=== PATIENT | female | born 1985 | race Caucasian/White ===

== ENCOUNTER 2020-04-16 16:38 | Emergency (ER) | payer MEDICAID ==
[~2020-04-16] VITALS: Ht 162.6 cm; Wt 63.0 kg
[2020-04-16 18:04] LABS: URINE HCG NEGATIVE (NEG)
[2020-04-16 18:09] LABS: CLARITY,URINE CLOUDY (Clear); COLOR,URINE ORANGE (Yellow); UA COLLECTION TYPE CLN CATCH MIDSTREAM
[2020-04-16 18:10] LABS: WBC,URINE TNTC /HPF (0-4)
[2020-04-16 18:11] LABS: BACTERIA,URINE 4+ /HPF (Neg); MUCUS STRANDS MANY /LPF (Neg); RBC,URINE 0-2 /HPF (0-2); SQUAMOUS EPITHELIAL CELL,UR MODERATE /LPF (FEW); TRANSITIONAL EPI CELLS,URINE FEW /HPF; WBC CLUMPS,URINE MODERATE /HPF (NEGATIVE)
--- NOTE | 2020-04-16 18:41 | NUR ---
TAKING OVER CARE WHILE PRIMARY RN IS ON LUNCH; WILL CONTINUE TO MONITOR.
[2020-04-16] MEDS ORDERED: ondansetron/PF 4mg/2ml inj IV ONE (19:35)
[2020-04-16] MEDS ORDERED: normal saline 1000ML IV soln IVB ONE (19:35)
[2020-04-16] MEDS ORDERED: CEPH-572 PO (20:28)
[2020-04-16 20:42] VITALS: BP 121/72
== END 2020-04-16 20:51 | disposition home or self-care (01) ==
LOC: ER 16:39
DX: N39.0 Urinary tract infection, site not specified (principal); R11.2 Nausea with vomiting, unspecified; R30.0 Dysuria; E86.0 Dehydration; R10.9 Unspecified abdominal pain; Z98.890 Other specified postprocedural states; Z79.2 Long term (current) use of antibiotics
CPT/HCPCS: 81001; 81025; 87077; 87088; 87186; 96361; 96374; 99283; J2405; J7030

== ENCOUNTER 2020-08-19 11:31 | Emergency (ER) | payer MEDICAID ==
[~2020-08-19] VITALS: Ht 162.6 cm; Wt 63.6 kg
== END 2020-08-19 12:30 | disposition home or self-care (01) ==
LOC: ER 11:31
DX: M79.10 Myalgia, unspecified site (principal); Z20.828 Contact with and (suspected) exposure to other viral communicable diseases; R43.9 Unspecified disturbances of smell and taste; Z98.891 History of uterine scar from previous surgery
CPT/HCPCS: 36415; 99282; 99283